=== PATIENT | male | born 1950 | race Hispanic/Latino ===

== ENCOUNTER 2023-05-13 11:03 | Outpatient (CLI) | payer MEDICARE ==
[2023-05-13] MEDS ORDERED: Magnevist 469MG/ML 20 ML VIAL ONE (15:00)
== END 2023-05-13 11:04 | disposition home or self-care (01) ==
LOC: CSHMRI 11:03
PROVIDERS: ATTEND Radiology Radiation Oncology
DX: C79.31 Secondary malignant neoplasm of brain (principal); C34.90 Malignant neoplasm of unspecified part of unspecified bronchus or lung
CPT/HCPCS: 70553; A9579